=== PATIENT | male | born 1990 | race Caucasian/White ===

== ENCOUNTER 2016-10-26 07:10 | Emergency (ER) | payer OTHER ==
[~2016-10-26] VITALS: Ht 188 cm; Wt 95.3 kg
[~2016-10-26 07:10] MED LIST: CYCL10TA9 PO
--- NOTE | 2016-10-26 07:34 | ED GI ---
General Chief Complaint: Abdominal/GI Problems Stated Complaint: ABD PAIN/CRAMPING BLOOD IN STOOL Nursing Triage Note: AMBULATED TO ROOM 07 WITH COMPLAINTS OF BRIGHT RED BLOOD IN STOOL X3 DAYS WITH X3 STOOLS TOTAL. COMPLAINS OF CONSTANT LIGHT ABD CRAMPING WITH SEVERE CRAMPING BEFORE EACH STOOL. Sepsis Screen: No Definite Risk Source of Information: Patient Exam Limitations: No Limitations History of Present Illness Time Seen By Provider: 07:32 Initial Comments Patient complains of bloody stools for the past 3 days. Bleeding is becoming more intense or turns the toilet water red. Stools are associated with right- sided abdominal pain and cramping. He denies nausea or vomiting. He denies fevers or chills. Stool is loose but not diarrhea. Only abdominal surgery is appendectomy Allergies and Home Medications Allergies Coded Allergies: No Known Drug Allergies (Unverified , 03/04/14) Review of Systems Constitutional: no symptoms reported EENTM: No Symptoms Reported Respiratory: No Symptoms Reported Cardiovascular: No Symptoms Reported Gastrointestinal: Abdominal PainDenies Diarrhea, Denies Nausea, Rectal BleedingDenies Vomiting Genitourinary: No Symptoms Reported Musculoskeletal: no symptoms reported All Other Systems Reviewed Negative Unless Noted: Yes Past Ljlteab-Wgbvaj-Jzekhb Hx Patient Social History Alcohol Use: Denies Use Recreational Drug Use: No Smoking Status: Never a Smoker Recent Foreign Travel: No Contact w/Someone Who Travel: No Recent Infectious Disease Expo: No Recent Hopitalizations: No Physical Abuse Screen: No Sexual Abuse: No Surgeries HX Surgeries: Yes Surgeries: Appendectomy Respiratory Hx Respiratory Disorders: No Cardiovascular Hx Cardiac Disorders: No Neurological Hx Neurological Disorders: No Reproductive System Hx Reproductive Disorders: No Sexually Transmitted Disease: No HIV/AIDS: No Genitourinary Hx Genitourinary Disorders: No Gastrointestinal Hx Gastrointestinal Disorders: No Musculoskeletal Hx Musculoskeletal Disorders: No Endocrine Hx Endocrine Disorders: No HEENT HX ENT Disorders: No Cancer Hx Cancer: No Psychosocial Hx Psychiatric Problems: No Integumentary HX Skin/Integumentary Disorder: No Blood Transfusions Hx Blood Disorders: No Adverse Reaction to a Blood Tr: No Reviewed Nursing Assessment Reviewed/Agree w Nursing PMH: Yes Physical Exam Vital Signs VS - Last 72 Hours, by Label 10/26/16 07:19 Temp 97.6 Pulse 92 Resp 18 B/P 133/88 Capillary Refill : Less Than 3 Seconds General Appearance: WD/WN no apparent distress Neck: supple Respiratory: lungs clear normal breath sounds Cardiovascular: regular rate, rhythm no edema Gastrointestinal: softNo guarding, No rebound, tenderness (tenderness right lower quadrant) Genital/Rectal: normal rectal exam heme negative stool Extremities: normal inspection Neurologic/Psychiatric: alert normal mood/affect Skin: normal color warm/dry Progress/Results/Core Measures Results/Orders Lab Results Laboratory Tests Test 10/26/16 07:35 Range/Units Activated Partial Thromboplast Time 29 24-35 SEC Alanine Aminotransferase (ALT/SGPT) 63 H 0-55 U/L Albumin 4.6 H 3.2-4.5 G/DL Alkaline Phosphatase 79 40-136 U/L Anion Gap 12 5-14 MMOL/L Aspartate Amino Transf (AST/SGOT) 26 5-34 U/L BUN/Creatinine Ratio 15 Basophils # (Auto) 0.0 0.0-0.1 10^3/uL Basophils (%) (Auto) 1 0-10 % Blood Urea Nitrogen 15 7-18 MG/DL Calcium Level 9.7 8.5-10.1 MG/DL Carbon Dioxide Level 25 21-32 MMOL/L Chloride Level 102 98-107 MMOL/L Creatinine 0.99 0.60-1.30 MG/DL Eosinophils # (Auto) 0.2 0.0-0.3 10^3/uL Eosinophils (%) (Auto) 2 0-10 % Estimat Glomerular Filtration Rate > 60 Glucose Level 122 H 70-105 MG/DL Hematocrit 45 40-54 % Hemoglobin 15.6 13.3-17.7 G/DL INR Comment 0.9 0.8-1.4 Lymphocytes # (Auto) 2.7 1.0-4.0 X 10^3 Lymphocytes (%) (Auto) 36 12-44 % Mean Corpuscular Hemoglobin 30 25-34 PG Mean Corpuscular Hemoglobin Concent 35 32-36 G/DL Mean Corpuscular Volume 87 80-99 FL Mean Platelet Volume 9.1 7.4-10.4 FL Monocytes # (Auto) 0.6 0.0-1.0 X 10^3 Monocytes (%) (Auto) 8 0-12 % Neutrophils # (Auto) 4.1 1.8-7.8 X 10^3 Neutrophils (%) (Auto) 54 42-75 % Platelet Count 279 130-400 10^3/uL Potassium Level 3.8 3.6-5.0 MMOL/L Prothrombin Time 11.7 L 12.2-14.7 SEC Red Blood Count 5.16 4.35-5.85 10^6/uL Red Cell Distribution Width 12.6 10.0-14.5 % Sodium Level 139 135-145 MMOL/L Total Bilirubin 0.3 0.1-1.0 MG/DL Total Protein 7.9 6.4-8.2 G/DL White Blood Count 7.6 4.3-11.0 10^3/uL My Orders Orders-LEXIS JOSEPH MD Cbc With Automated Diff (10/26/16 07:25) Comprehensive Metabolic Panel (10/26/16 07:25) Protime With Inr (10/26/16 07:25) Partial Thromboplastin Time (10/26/16 07:25) Ct Abdomen/Pelvis W (10/26/16 07:25) Iohexol Injection (Omnipaque 350 Mg/Ml 1 (10/26/16 07:45) Ns (Ivpb) (Sodium Chloride 0.9% Ivpb Bag (10/26/16 07:45) Medications Given in ED Current Medications Medications Dose Ordered Sig/Mala Route Start Time Stop Time Status Last Admin Dose Admin Iohexol 100 ml ONCE ONCE IV 10/26/16 07:45 10/26/16 07:46 DC 10/26/16 07:45 100 ML Sodium Chloride 100 ml ONCE ONCE IV 10/26/16 07:45 10/26/16 07:46 DC 10/26/16 07:45 80 ML Vital Signs/I&O Vital Sign - Last 12Hours 10/26/16 07:19 Temp 97.6 Pulse 92 Resp 18 B/P 133/88 Blood Pressure Mean: 103 Progress Note : Time: 08:44 Progress Note I spoke with Dr. Villafana. He will see the patient Monday in his office. Diagnostic Imaging Comments Date of Exam:10/26/16 CT ABDOMEN/PELVIS W PROCEDURE: CT abdomen and pelvis with contrast. TECHNIQUE: Multiple contiguous axial images were obtained through the abdomen and pelvis after administration of intravenous contrast. INDICATION: Mid abdominal pain. 100 mL of Omnipaque-350 is administered intravenously. FINDINGS: The lung bases appear clear. The liver, the gallbladder, the spleen, the pancreas, and adrenals appear unremarkable. The kidneys have symmetric enhancement and contrast excretion. There is no hydronephrosis. The abdominal aorta is normal in caliber. No periaortic or significantly enlarged lymph nodes seen. No significant free fluid or fluid collection in the abdomen or pelvis seen. There is a surgical clip seen in the pelvis seen anterior to the rectum. The stomach is moderately distended with ingested material and secretions without dilatation of the duodenum or small or large bowel. No obstructive lesion is identified at the level of the pylorus. The osseous structures appear grossly unremarkable. IMPRESSION: Moderate gastric distention with ingested material and secretions. Departure Impression Impression: Primary Impression: abdominal pain Additional Impression: Rectal bleeding Disposition: HOME, SELF-CARE Condition: Stable Departure-Patient Inst. Decision time for Depature: 08:44 Referrals: LI VILLAFANA MD Patient Instructions: Gastrointestinal Bleeding Add. Discharge Instructions: Call today for an appointment with Dr. Villafana on Monday. All discharge instructions reviewed with patient and/or family. Voiced understanding. LEXIS JOSEPH MD Oct 26, 2016 07:34
[2016-10-26 07:44] LABS: BASOPHILS % (AUTO) 1 % (0-10); EOSINOPHILS # (AUTO) 0.2 10^3/uL (0.0-0.3); EOSINOPHILS % (AUTO) 2 % (0-10); LYMPHOCYTES # (AUTO) 2.7 X 10^3 (1.0-4.0); LYMPHOCYTES % (AUTO) 36 % (12-44); MEAN CORPUSCULAR HEMOGLOBIN 30 PG (25-34); MEAN CORPUSCULAR HGB CONC 35 G/DL (32-36); MEAN CORPUSCULAR VOLUME 87 FL (80-99); MEAN PLATELET VOLUME 9.1 FL (7.4-10.4); MONOCYTES # (AUTO) 0.6 X 10^3 (0.0-1.0); MONOCYTES % (AUTO) 8 % (0-12); NEUTROPHILS # (AUTO) 4.1 X 10^3 (1.8-7.8); NEUTROPHILS % (AUTO) 54 % (42-75); PLATELET COUNT 279 10^3/uL (130-400); RED BLOOD COUNT 5.16 10^6/uL (4.35-5.85); RED CELL DISTRIBUTION WIDTH 12.6 % (10.0-14.5); WHITE BLOOD COUNT 7.6 10^3/uL (4.3-11.0)
[2016-10-26] MEDS ORDERED: NS 100 ML (IVPB) BAG IV ONE (07:45)
[2016-10-26] MEDS ORDERED: IOHEXOL 350 MG/ML 100 ML (OMNIPAQUE 350) VIAL IV ONE (07:45)
[2016-10-26 08:00] LABS: INR 0.9 (0.8-1.4); PROTHROMBIN TIME PATIENT 11.7 SEC (12.2-14.7)
[2016-10-26 08:07] LABS: ALANINE AMINOTRANSFERASE 63 U/L (0-55); ALBUMIN 4.6 G/DL (3.2-4.5); ANION GAP 12 MMOL/L (5-14); ASPARTATE AMINO TRANSFERASE 26 U/L (5-34); BILIRUBIN,TOTAL 0.3 MG/DL (0.1-1.0); BLOOD UREA NITROGEN 15 MG/DL (7-18); BUN/CREATININE RATIO 15; CALCIUM 9.7 MG/DL (8.5-10.1); CARBON DIOXIDE 25 MMOL/L (21-32); CHLORIDE 102 MMOL/L (98-107); CREATININE SERUM 0.99 MG/DL (0.60-1.30); GFR ESTIMATED > 60; GLUCOSE 122 MG/DL (70-105); POTASSIUM 3.8 MMOL/L (3.6-5.0); SODIUM 139 MMOL/L (135-145); TOTAL PROTEIN 7.9 G/DL (6.4-8.2)
--- NOTE | 2016-10-26 08:25 | Diagnostic Imaging Report ---
PROCEDURE: CT abdomen and pelvis with contrast. TECHNIQUE: Multiple contiguous axial images were obtained through the abdomen and pelvis after administration of intravenous contrast. INDICATION: Mid abdominal pain. 100 mL of Omnipaque-350 is administered intravenously. FINDINGS: The lung bases appear clear. The liver, the gallbladder, the spleen, the pancreas, and adrenals appear unremarkable. The kidneys have symmetric enhancement and contrast excretion. There is no hydronephrosis. The abdominal aorta is normal in caliber. No periaortic or significantly enlarged lymph nodes seen. No significant free fluid or fluid collection in the abdomen or pelvis seen. There is a surgical clip seen in the pelvis seen anterior to the rectum. The stomach is moderately distended with ingested material and secretions without dilatation of the duodenum or small or large bowel. No obstructive lesion is identified at the level of the pylorus. The osseous structures appear grossly unremarkable. IMPRESSION: Moderate gastric distention with ingested material and secretions. Dictated by: Dictated on workstation # [id number]
[2016-10-26 08:59] VITALS: BP 132/86
== END 2016-10-26 08:59 | disposition home or self-care (01) ==
LOC: EDUNIT# 07:10 → ER 07:13
DX: K62.5 Hemorrhage of anus and rectum (principal); K31.9 Disease of stomach and duodenum, unspecified; R10.31 Right lower quadrant pain
CPT/HCPCS: 36415; 74177; 80053; 85025; 85610; 85730

== ENCOUNTER 2016-12-05 10:00 | Outpatient (CLI) | payer OTHER ==
--- OUTSIDE RECORDS SUMMARY | 2016-12-01 06:18 | XMS REPORT | Continuity of Care Document ---
Author Author [facility] Organization [facility] Address Unknown Phone Unavailable Care Team Providers Care Rope Tier Name Role Phone NO, LOCAL PHYSICIAN PCP Unavailable Insurance Providers Payer Name Policy Number Subscriber Name [facility] [id number] Laura Patterson 17 Self / Same As Patient Advance Directives Directive Response Recorded Date/Time Advance Directives No 10/26/16 7:21am Resuscitation Status Full Code 10/26/16 7:21am Chief Complaint and Reason for Visit Chief Complaint Abdominal/GI Problems Reason for Visit [id number] abdominal pain Problems Active Problems Medical Problem Onset Date Status Rectal bleeding Unknown Acute Medications Past Home Medications Medication Directions Ordered Status Cyclobenzaprine Hcl (Flexeril) 10 Mg Tablet, 1 Each Oral Q8hr Prn 03/04/14 Discontinued Social History Social History Problem Response Recorded Date/Time Alcohol Use Denies Use 03/04/2014 8:26pm Recreational Drug Use No 03/04/2014 8:26pm Recent Foreign Travel No 10/26/2016 7:19am Recent Infectious Disease Exposure No 10/26/2016 7:19am Sexually Transmitted Disease No 10/26/2016 7:21am HIV/AIDS No 10/26/2016 7:21am Smoking Status Never a Smoker 10/26/2016 7:21am Recent Hopitalizations No 10/26/2016 7:21am Sexually Transmitted Disease No 10/26/2016 7:21am Query Response Start Date Stop Date Smoking Status Never a Smoker Hospital Discharge Instructions No hospital discharge instructions. Plan of Care Discharge Date 10/26/16 8:59am Disposition 01 HOME, SELF-CARE Condition at Discharge Stable Instructions/Education Provided Gastrointestinal Bleeding Prescriptions See Medication Section Referrals LI POON MD - Additional Instructions/Education Call today for an appointment with Dr. Poon on Monday. All discharge instructions reviewed with patient and/or family. Voiced understanding. Functional Status No functional status results. Allergies, Adverse Reactions, Alerts No known allergies. Immunizations No immunization records. Vital Signs Acute Vital Signs Vital Response Date/Time Temperature (Fahrenheit) 97.6 degrees F (97.6 - 99.5) 10/26/2016 7:19am Temperature (Calculated Celsius) 36.01686 degrees C (36.4 - 37.5) 10/26/2016 7:19am Temperature Source Tympanic 10/26/2016 7:19am Pulse Rate (adult) 92 bpm (60 - 90) 10/26/2016 7:19am Respiratory Rate 18 bpm (12 - 24) 10/26/2016 7:19am Blood Pressure 133/88 mm Hg 10/26/2016 7:19am Blood Pressure Mean 103 mm Hg 10/26/2016 7:19am Pain Numeric Pain Scale 3 10/26/2016 7:19am Height (Feet) 6 feet 10/26/2016 7:19am Height (Inches) 2 inches 10/26/2016 7:19am Height (Calculated Centimeters) 187.541191 cm 10/26/2016 7:19am Weight (Pounds) 210 pounds 10/26/2016 7:19am Weight (Calculated Kilograms) 95.468951 kilograms 10/26/2016 7:19am Capillary Refill Capillary Refill Less Than 3 Seconds 10/26/2016 7:19am Height 6 ft 2 in Weight 210 lb Body Mass Index 27.0 kg/m^2 Results Laboratory Results Test Name Result Units Flags Reference Collection Date/Time Result Date/ Time Comments White Blood Count 7.6 10^3/uL 4.3-11.0 10/26/2016 7:35am 10/26/2016 7: 45am Red Blood Count 5.16 10^6/uL 4.35-5.85 10/26/2016 7:35am 10/26/2016 7: 45am Hemoglobin 15.6 G/DL 13.3-17.7 10/26/2016 7:35am 10/26/2016 7:45am Hematocrit 45 % 40-54 10/26/2016 7:35am 10/26/2016 7:45am Mean Corpuscular Volume 87 FL 80-99 10/26/2016 7:35am 10/26/2016 7: 45am Mean Corpuscular Hemoglobin 30 PG 25-34 10/26/2016 7:35am 10/26/2016 7: 45am Mean Corpuscular Hemoglobin Concent 35 G/DL 32-36 10/26/2016 7:35am 08/2017 7:45am Red Cell Distribution Width 12.6 % 10.0-14.5 10/26/2016 7:35am 2016 7:45am Platelet Count 279 10^3/uL 130-400 10/26/2016 7:35am 10/26/2016 7:45am Mean Platelet Volume 9.1 FL 7.4-10.4 10/26/2016 7:35am 10/26/2016 7: 45am Neutrophils (%) (Auto) 54 % 42-75 10/26/2016 7:35am 10/26/2016 7:45am Lymphocytes (%) (Auto) 36 % 12-44 10/26/2016 7:35am 10/26/2016 7:45am Monocytes (%) (Auto) 8 % 0-12 10/26/2016 7:35am 10/26/2016 7:45am Eosinophils (%) (Auto) 2 % 0-10 10/26/2016 7:35am 10/26/2016 7:45am Basophils (%) (Auto) 1 % 0-10 10/26/2016 7:35am 10/26/2016 7:45am Neutrophils # (Auto) 4.1 X 10^3 1.8-7.8 10/26/2016 7:35am 10/26/2016 7: 45am Lymphocytes # (Auto) 2.7 X 10^3 1.0-4.0 10/26/2016 7:35am 10/26/2016 7: 45am Monocytes # (Auto) 0.6 X 10^3 0.0-1.0 10/26/2016 7:35am 10/26/2016 7: 45am Eosinophils # (Auto) 0.2 10^3/uL 0.0-0.3 10/26/2016 7:35am 10/26/2016 7 :45am Basophils # (Auto) 0.0 10^3/uL 0.0-0.1 10/26/2016 7:35am 10/26/2016 7: 45am Prothrombin Time 11.7 SEC L 12.2-14.7 10/26/2016 7:35am 10/26/2016 8: 07am INR Comment 0.9 0.8-1.4 10/26/2016 7:35am 10/26/2016 8:07am INTERPRETIVE DATA SUGGESTED THERAPEUTIC RANGE FOR INR'S: VENOUS THROMBOSIS, PULMONARY EMBOLISM, OR PREVENTION OF SYSTEMIC EMBOLISM (EG. IN ATRIAL FIBRILLATION): 2.0 - 3.0 MECHANICAL PROSTHETIC HEART VALVES: 2.5 - 3.5* *NOTE: INR'S UP TO 4.5 MAY BE NECESSARY IN SELECTED GROUPS OF HIGH RISK PATIENTS. SIX[employer] [place] [employer] CONSENSUS CONFERENCE ON ANTITHROMBOTIC THERAPY (2000). Activated Partial Thromboplast Time 29 SEC 24-35 10/26/2016 7:35am 08/2017 8:07am Sodium Level 139 MMOL/L 135-145 10/26/2016 7:35am 10/26/2016 8:08am Potassium Level 3.8 MMOL/L 3.6-5.0 10/26/2016 7:35am 10/26/2016 8:08am Chloride Level 102 MMOL/L 98-107 10/26/2016 7:35am 10/26/2016 8:08am Carbon Dioxide Level 25 MMOL/L 21-32 10/26/2016 7:35am 10/26/2016 8: 08am Anion Gap 12 MMOL/L 5-14 10/26/2016 7:35am 10/26/2016 8:08am Blood Urea Nitrogen 15 MG/DL 7-18 10/26/2016 7:35am 10/26/2016 8:08am Creatinine 0.99 MG/DL 0.60-1.30 10/26/2016 7:35am 10/26/2016 8:08am BUN/Creatinine Ratio 15 10/26/2016 7:35am 10/26/2016 8:08am Estimat Glomerular Filtration Rate > 60 10/26/2016 7:35am 2016 8:08am GFR INTERPRETIVE DATA UNITS FOR ESTIMATED GFR (eGFR): mL/min/1.73 M2 REFERENCE RANGE FOR ESTIMATED GFR (eGFR) eGFR NORMAL eGFR >60 MODERATELY DECREASED eGFR 30-59 SEVERLY DECREASED eGFR 15-29 KIDNEY FAILURE <15 (OR DIALYSIS) Glucose Level 122 MG/DL H 70-105 10/26/2016 7:35am 10/26/2016 8:08am Calcium Level 9.7 MG/DL 8.5-10.1 10/26/2016 7:35am 10/26/2016 8:08am Total Bilirubin 0.3 MG/DL 0.1-1.0 10/26/2016 7:35am 10/26/2016 8:08am Alkaline Phosphatase 79 U/L 40-136 10/26/2016 7:35am 10/26/2016 8:08am Aspartate Amino Transf (AST/SGOT) 26 U/L 5-34 10/26/2016 7:35am 2016 8:08am Alanine Aminotransferase (ALT/SGPT) 63 U/L H 0-55 10/26/2016 7:35am 10/26 8:08am Total Protein 7.9 G/DL 6.4-8.2 10/26/2016 7:35am 10/26/2016 8:08am Albumin 4.6 G/DL H 3.2-4.5 10/26/2016 7:35am 10/26/2016 8:08am Procedures No known history of procedures. Encounters Encounter Location Arrival/Admit Date Discharge/Depart Date Attending Provider Departed Emergency Room [facility] 10/26/16 7:13am 10/26 8:59am LEXIS JOSEPH MD Recent Diagnosis
[~2016-12-05] VITALS: Ht 188 cm; Wt 95.3 kg
--- OUTSIDE RECORDS SUMMARY | 2016-12-05 10:32 | XMS REPORT | Continuity of Care Document ---
Author Author [facility] Organization [facility] Address Unknown Phone Unavailable Care Team Providers Care Acid Tester Name Role Phone NO, LOCAL PHYSICIAN PCP Unavailable Insurance Providers Payer Name Policy Number Subscriber Name [facility] [id number] Laura Patterson 17 Self / Same As Patient Advance Directives Directive Response Recorded Date/Time Advance Directives No 10/26/16 7:21am Resuscitation Status Full Code 10/26/16 7:21am Chief Complaint and Reason for Visit Chief Complaint Abdominal/GI Problems Reason for Visit [id number] abdominal pain Problems Active Problems Medical Problem [...] - 99.5) 10/26/2016 7:19am Temperature (Calculated Celsius) 36.37261 degrees C (36.4 - 37.5) 10/26/2016 7:19am [...] 2 inches 10/26/2016 7:19am Height (Calculated Centimeters) 187.885645 cm 10/26/2016 7:19am Weight (Pounds) 210 pounds 10/26/2016 7:19am Weight (Calculated Kilograms) 95.940405 kilograms 10/26/2016 7:19am Capillary Refill Capillary Refill [...] SELECTED GROUPS OF HIGH RISK PATIENTS. [employer] [place] [employer] CONSENSUS CONFERENCE ON [...] Date Attending Provider Departed Emergency Room [facility] 10/26/16 7:13am 10/26 8:59am LEXIS JOSEPH MD Recent Diagnosis
[2016-12-06] MEDS ORDERED: CLT4KB PO (09:35)
== END 2016-12-05 10:45 ==
LOC: PREOP 10:00
PROVIDERS: ATTEND Surgery
DX: Z01.818 Encounter for other preprocedural examination (principal); K92.1 Melena

== ENCOUNTER 2016-12-06 08:39 | Day surgery (SDC) | payer OTHER ==
[~2016-12-06] VITALS: Ht 188 cm; Wt 95.3 kg
[2016-12-06] MEDS ORDERED: proPOfol 200 MG/20 ML (DIPRIVAN) VIAL IV ONE (08:46)
[2016-12-06] MEDS ORDERED: NS IV 1000 ML 1,000 ML IV STA (08:46)
[2016-12-06] MEDS ORDERED: MIDAZOLAM 2 MG/2 ML (VERSED) VIAL ONE (08:46)
[2016-12-06] MEDS ORDERED: NS IV 1000 ML 1,000 ML ONE (08:48)
[2016-12-06 08:55] VITALS: BP 119/77
--- NOTE | 2016-12-06 09:00 | Progress Note-Pre Operative ---
Pre-Operative Progress Note H&P Reviewed The H&P was reviewed, patient examined and no changes noted. Date H&P Reviewed: Dec 06, 2016 Time H&P Reviewed: 08:59 Pre-Operative Diagnosis: bloody stools ADRIANA FORBES DO Dec 06, 2016 8:59 am
--- NOTE | 2016-12-06 09:28 | Discharge Inst-Simple/Standard ---
Discharge Inst-Standard Discharge Medications New, Converted or Re-Newed RX: RX on Chart Patient Instructions/Follow Up Plan of Care/Instructions/FU: Reschedule for next week. You will need to be on clear liquids for two days prior to colonoscopy. Take Golytely as directed. Drink 1 (8 oz) glass every 10 minutes. Rapid drinking of each portion is better than drinking small amounts continuously. The first bowel movement should begin approximately 1 hour after the start of NuLYTELY administration. You will still have loose bowel movements for about 1 to 2 hours after you finish drinking the solution. Start drinking solution @ 3pm, the day before the procdure is to happen. No solid food till after procedure has occured Activity as Tolerated: Yes Discharge Diet: No Restrictions MARIAH PADGETT APRN Dec 06, 2016 09:28
--- NOTE | 2016-12-06 09:34 | Progress Note-Post Operative ---
Post-Operative Progess Note Pre-Operative Diagnosis bloody stools Post-Operative Diagnosis poor prep Post-Op Procedure Note Date of Procedure: Dec 06, 2016 Name of Procedure: incomplete colonosocpy due to poor prep Procedure Note/Findings see note Anesthesia Type per education adviser Estimated blood loss (mL): none ADRIANA FORBES DO Dec 06, 2016 9:34 am
[2016-12-06] MEDS ORDERED: CLT4KB PO (09:35)
[2016-12-06 09:50] VITALS: BP 94/56
[2016-12-06 10:15] VITALS: BP 104/72
[2016-12-06 10:19] VITALS: BP 104/72
--- OUTSIDE RECORDS SUMMARY | 2016-12-06 13:16 | XMS REPORT | Continuity of Care Document ---
Author Author [facility] Organization [facility] Address Unknown Phone Unavailable Care Team Providers Care Surface Plate Finisher Name Role Phone NO, LOCAL PHYSICIAN PCP Unavailable Insurance Providers Payer Name Policy Number Subscriber Name [facility] [id number] Laura Patterson 17 Self / Same As Patient Advance Directives Directive Response Recorded Date/Time Advance Directives No 10/26/16 7:21am Resuscitation Status Full Code 10/26/16 7:21am Chief Complaint and Reason for Visit Chief Complaint Abdominal/GI Problems Reason for Visit [id number] abdominal pain Problems Active Problems Medical Problem [...] - 99.5) 10/26/2016 7:19am Temperature (Calculated Celsius) 36.92956 degrees C (36.4 - 37.5) 10/26/2016 7:19am [...] 2 inches 10/26/2016 7:19am Height (Calculated Centimeters) 187.285793 cm 10/26/2016 7:19am Weight (Pounds) 210 pounds 10/26/2016 7:19am Weight (Calculated Kilograms) 95.623949 kilograms 10/26/2016 7:19am Capillary Refill Capillary Refill [...] SELECTED GROUPS OF HIGH RISK PATIENTS. [employer]IX[employer] [place] [employer] CONSENSUS CONFERENCE ON [...] Date Attending Provider Departed Emergency Room [facility] 10/26/16 7:13am 10/26 8:59am LEXIS JOSEPH MD Recent Diagnosis
--- OUTSIDE RECORDS SUMMARY | 2016-12-06 13:16 | XMS REPORT | Continuity of Care Document ---
Author Author [facility] Organization [facility] Address Unknown Phone Unavailable Care Team Providers Care Yam Curer Name Role Phone NO, LOCAL PHYSICIAN PCP Unavailable Insurance Providers Payer Name Policy Number Subscriber Name Relationship [facility] [id number] Laura Patterson 17 Self / Same As Patient Advance Directives Directive Response Recorded Date/Time Advance Directives No 10/26/16 7:21am Resuscitation Status Full Code 10/26/16 7:21am Chief Complaint and Reason for Visit Chief Complaint Abdominal/GI Problems Reason for Visit [id number] abdominal pain Problems Active Problems Medical Problem [...] - 99.5) 10/26/2016 7:19am Temperature (Calculated Celsius) 36.32082 degrees C (36.4 - 37.5) 10/26/2016 7:19am [...] 2 inches 10/26/2016 7:19am Height (Calculated Centimeters) 187.317802 cm 10/26/2016 7:19am Weight (Pounds) 210 pounds 10/26/2016 7:19am Weight (Calculated Kilograms) 95.553976 kilograms 10/26/2016 7:19am Capillary Refill Capillary Refill [...] SELECTED GROUPS OF HIGH RISK PATIENTS. [employer] [place] [employer] CONSENSUS CONFERENCE ON [...] Date Attending Provider Departed Emergency Room [facility] 10/26/16 7:13am 10/26 8:59am LEXIS JOSEPH MD Recent Diagnosis
--- NOTE | 2016-12-06 13:47 | PROCEDURE REPORT ---
PROCEDURE PHYSICIAN: ADRIANA FORBES DATE OF PROCEDURE: 12/06/2016 PREOPERATIVE DIAGNOSIS: Bloody stools. POSTOPERATIVE DIAGNOSIS: Poor prep. PROCEDURE: Incomplete colonoscopy due to poor prep. SURGEON: Scott. ANESTHESIA: Per [employer]. ESTIMATED BLOOD LOSS: None. COMPLICATIONS: None. INDICATIONS: The patient is a 26-year-old male with bloody stools. He understood risks and benefits of the procedure and wishes to proceed with procedures. Consent was signed on the chart. PROCEDURE: The patient was taken endoscopy suite, placed in the left lateral recumbent position. Timeout was performed. Digital rectal exam was performed. There were no palpable polyps, masses, ulcerations. The scope was inserted in the rectum and encountered by stool. This continued to be slowly moved through into the sigmoid colon where the stool was continuous. The scope was continued to be advanced up through the sigmoid colon where continued to be encountered by stool and into the descending colon was then visualized full of stools as well. At this time it was decided to abort due to poor prep. The scope was then slowly retracted back from the sigmoid colon into the rectum and then completely removed. The patient will need to go further prep which we will try GoLYTELY prep with a 2 day liquid diet and we will reschedule. Job ID: [id number] Dictated Date: 12/06/2016 09:36:56 Payroll Examiner Date: 12/06/2016 13:42:56 / fran
== END 2016-12-06 10:20 | disposition home or self-care (01) ==
LOC: ENDO 08:39
PROVIDERS: ATTEND Surgery
DX: K92.1 Melena (principal)

== ENCOUNTER 2016-12-27 09:35 | Day surgery (SDC) | payer OTHER ==
[~2016-12-27] VITALS: Ht 188 cm; Wt 95.3 kg
[~2016-12-27 09:35] MED LIST changes: +CLT4KB PO
--- OUTSIDE RECORDS SUMMARY | 2016-12-27 09:39 | XMS REPORT | Continuity of Care Document ---
Author Author [facility] Organization [facility] Address Unknown Phone Unavailable Care Team Providers Care Seaweed Harvester Name Role Phone NO, LOCAL PHYSICIAN PCP Unavailable Insurance Providers Payer Name Policy Number Subscriber Name [facility] [id number] Laura Patterson 17 Self / Same As Patient Advance Directives Directive Response Recorded Date/Time Advance Directives No 10/26/16 7:21am Resuscitation Status Full Code 10/26/16 7:21am Chief Complaint and Reason for Visit Chief Complaint Abdominal/GI Problems Reason for Visit [id number] abdominal pain Problems Active Problems Medical Problem [...] - 99.5) 10/26/2016 7:19am Temperature (Calculated Celsius) 36.20763 degrees C (36.4 - 37.5) 10/26/2016 7:19am [...] 2 inches 10/26/2016 7:19am Height (Calculated Centimeters) 187.903528 cm 10/26/2016 7:19am Weight (Pounds) 210 pounds 10/26/2016 7:19am Weight (Calculated Kilograms) 95.955785 kilograms 10/26/2016 7:19am Capillary Refill Capillary Refill [...] SELECTED GROUPS OF HIGH RISK PATIENTS. [employer] [place] [employer] CONSENSUS CONFERENCE ON [...] Date Attending Provider Departed Emergency Room [facility] 10/26/16 7:13am 10/26 8:59am LEXIS JOSEPH MD Recent Diagnosis
--- OUTSIDE RECORDS SUMMARY | 2016-12-27 09:39 | XMS REPORT | Continuity of Care Document ---
Author Author [facility] Organization [facility] Address Unknown Phone Unavailable Care Team Providers Care Consumer Banker Name Role Phone NO, LOCAL PHYSICIAN PCP Unavailable Insurance Providers Payer Name Policy Number Subscriber Name [facility] [id number] Laura Patterson 17 Self / Same As Patient Advance Directives Directive Response Recorded Date/Time Advance Directives No 10/26/16 7:21am Resuscitation Status Full Code 10/26/16 7:21am Chief Complaint and Reason for Visit Chief Complaint Abdominal/GI Problems Reason for Visit [id number] abdominal pain Problems Active Problems Medical Problem [...] - 99.5) 10/26/2016 7:19am Temperature (Calculated Celsius) 36.83847 degrees C (36.4 - 37.5) 10/26/2016 7:19am [...] 2 inches 10/26/2016 7:19am Height (Calculated Centimeters) 187.657252 cm 10/26/2016 7:19am Weight (Pounds) 210 pounds 10/26/2016 7:19am Weight (Calculated Kilograms) 95.203614 kilograms 10/26/2016 7:19am Capillary Refill Capillary Refill [...] SELECTED GROUPS OF HIGH RISK PATIENTS. [employer] CONSENSUS CONFERENCE ON [...]
[2016-12-27] MEDS ORDERED: NS IV 1000 ML 1,000 ML IV STA (09:42)
[2016-12-27] MEDS ORDERED: NS IV 1000 ML 1,000 ML IV PRN (09:50)
[2016-12-27 10:43] VITALS: BP 112/75
[2016-12-27] MEDS ORDERED: MIDAZOLAM 2 MG/2 ML (VERSED) VIAL ONE (11:08)
[2016-12-27] MEDS ORDERED: proPOfol 200 MG/20 ML (DIPRIVAN) VIAL IV ONE (11:08)
--- NOTE | 2016-12-27 11:43 | Progress Note-Post Operative ---
Post-Operative Progess Note Pre-Operative Diagnosis bloody stools Post-Operative Diagnosis normal colon Post-Op Procedure Note Date of Procedure: Dec 27, 2016 Name of Procedure: colonoscopy Procedure Note/Findings see note Anesthesia Type per mda Estimated blood loss (mL): none Specimen(s) collected none ADRIANA FORBES DO Dec 27, 2016 11:43
--- NOTE | 2016-12-27 11:45 | Discharge Inst-Simple/Standard ---
Discharge Inst-Standard Patient Instructions/Follow Up Plan of Care/Instructions/FU: 2 weeks Scott Activity as Tolerated: Yes Discharge Diet: Regular Diet ADRIANA FORBES DO Dec 27, 2016 11:45
[2016-12-27 11:50] VITALS: BP 96/60
[2016-12-27 12:10] VITALS: BP 100/62
[2016-12-27 12:18] VITALS: BP 100/62
--- NOTE | 2016-12-28 10:06 | PROCEDURE REPORT ---
PROCEDURE PHYSICIAN: ADRIANA FORBES DATE OF PROCEDURE: 12/27/2016 PREOPERATIVE DIAGNOSIS; Bloody stools. POSTOPERATIVE DIAGNOSIS: Normal colon. PROCEDURE: Colonoscopy. SURGEON: Scott. ANESTHESIA: Per MDA. ESTIMATED BLOOD LOSS: None. COMPLICATIONS: None. INDICATIONS: The patient is a 26-year-old male who has been having bloody stools. He understood risks and benefits of procedure and wished to proceed with procedure. Consent was signed on the chart. PROCEDURE: The patient was taken to the endoscopy suite, placed in left lateral recumbent position. Timeout was performed. Digital rectal exam was performed. There were no palpable polyps, masses or ulcerations. The scope was inserted into the rectum and advanced all of the way to the cecum with minimal difficulty. Prep was adequate. The scope was then intubated through the ileocecal valve and visualized the ileum, which had normal appearance. The scope was slowly retracted back into the cecum where there were no polyps, masses, ulcerations. The scope was then slowly retracted back. There were no polyps, masses, ulcerations within the ascending, transverse, descending and sigmoid colon. Once in the rectum, the scope was also retroflexed noting no further pathology. The scope was returned to its normal position slowly withdrawn until completely removed. The patient tolerated procedure well without any complications and taken to recovery room in stable condition. RECOMMENDATIONS: The patient will follow-up in 2 to 3 weeks to see how he is doing, if he is having any further bloody stools. If continues to have bloody stools, would also consider a capsule endoscopy of the small bowel. Job ID: [id number] Dictated Date: 12/27/2016 11:48:01 Riprap Man Date: 12/28/2016 10:00:46 / fran
== END 2016-12-27 12:19 | disposition home or self-care (01) ==
LOC: ENDO 09:35
PROVIDERS: ATTEND Surgery
DX: K92.1 Melena (principal)